=== PATIENT | male | born 1975 | race Hispanic/Latino ===

== ENCOUNTER 2022-03-29 09:45 | Outpatient (CLI) | payer OTHER ==
--- NOTE | 2022-03-29 11:50 | XRay Report ---
Lumbar spine 3 views INDICATION: Back pain FINDINGS: Alignment appears normal. Mild endplate changes and facet changes are seen throughout. No s ubluxation is seen. Visualized sacrum appears normal. IMPRESSION: No acute findings. Signer Name: Jace Corbett MD Signed: 03/29/2022 11:45 AM Workstation Name: [id number]
--- NOTE | 2022-03-29 12:08 | XRay Report ---
Right knee 3 views INDICATION: Knee pain FINDINGS: Degenerative changes seen in the medial femoral condyle and medial knee and mild patellofem oral degenerative change. No acute fracture dislocation. No large joint effusion. IMPRESSION: Degenerative change. Signer Name: Jace Corbett MD Signed: 03/29/2022 11:58 AM Workstation Name: [id number]
--- NOTE | 2022-03-29 12:10 | XRay Report ---
Right ankle, 2 views HISTORY: Right ankle pain COMPARISON: FINDINGS: No acute fracture or malalignment. Mild osteoarthritis of the right ankle, preferentially i nvolving the lateral compartment. No focal soft tissue abnormality. IMPRESSION: No acute findings. Signer Name: Sancho Macias MD Signed: 03/29/2022 12:01 PM Workstation Name: [id number]
--- NOTE | 2022-03-29 12:10 | XRay Report ---
RIGHT ELBOW 2 VIEWS INDICATION / CLINICAL INFORMATION: RIGHT ELBOW PAIN. COMPARISON: None available. FINDINGS: BONES / JOINT(S): No acute fracture or subluxation. There is mild joint space narrowing and osteophyt e formation at the ulnohumeral articulation. SOFT TISSUES: No significant abnormality. ADDITIONAL FINDINGS: None. IMPRESSION: No acute skeletal abnormality. Mild degenerative change at the ulnar humeral articulation. Signer Name: Narinder Mcmillan MD Signed: 03/29/2022 12:04 PM Workstation Name: [id number]
== END 2022-03-29 09:46 | disposition home or self-care (01) ==
LOC: XRAY 09:45
PROVIDERS: ATTEND Internal Medicine
DX: M17.11 Unilateral primary osteoarthritis, right knee (principal); M19.021 Primary osteoarthritis, right elbow; M19.071 Primary osteoarthritis, right ankle and foot; M54.50 Low back pain, unspecified
CPT/HCPCS: 72100